=== PATIENT | female | born 1980 | race Caucasian/White ===

== ENCOUNTER 2017-10-23 17:36 | Emergency (ER) | payer MEDICAID ==
[~2017-10-23] VITALS: Ht 167.6 cm; Wt 62.0 kg
[2017-10-23] MEDS ORDERED: PERM324. TD (18:27)
[2017-10-23 18:50] VITALS: BP 128/81
== END 2017-10-23 18:53 | disposition home or self-care (01) ==
LOC: ER 17:37
DX: B85.0 Pediculosis due to Pediculus humanus capitis (principal); Z79.899 Other long term (current) drug therapy
CPT/HCPCS: 99282